=== PATIENT | male | born 1995 ===

== ENCOUNTER 2018-06-30 09:06 | Emergency (ER) | payer SELFPAY ==
[2018-06-30 09:17] VITALS: BP 124/83; PULSE 82; RESP 16; TEMP 97.3; O2SAT 98
--- NOTE | 2018-06-30 09:57 | C.PDOC ---
History Of Present Illness 23 y/o male presents to the ED complaining of an itchy rash to the bilateral wrists and forearms onset 2 weeks ago. Patient notes the rash is now spreading to his face, forehead, and neck. 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 Otherwise patient denies any fever, lip/tongue swelling, sensation of throat closing, or SOB. He does report having a mild productive cough with clear sputum. Patient has been applying calamine lotion and topical hydrocortisone since Saturday with mild improvement. Time Seen by Provider: 06/30/18 09:15 Chief Complaint (Nursing): Abnormal Skin Integrity History Per: Patient History/Exam Limitations: no limitations Onset/Duration Of Symptoms: Days Current Symptoms Are (Timing): Still Present Location Of Injury: Right: Wrist, Left: Wrist Quality Of Symptoms: Itching Past Medical History Reviewed: Historical Data, Nursing Documentation, Vital Signs Vital Signs: Last Vital Signs Temp 97.3 F L 06/30/18 09:14 Pulse 82 06/30/18 09:14 Resp 16 06/30/18 09:14 BP 124/83 06/30/18 09:14 Pulse Ox 98 06/30/18 09:14 - Medical History PMH: No Chronic Diseases Family History: States: No Known Family Hx - Social History Hx Tobacco Use: No Hx Alcohol Use: No Hx Substance Use: No - Immunization History Hx Tetanus Toxoid Vaccination: No Hx Influenza Vaccination: No Hx Pneumococcal Vaccination: No Review Of Systems Constitutional: Negative for: Fever ENT: Negative for: Mouth Swelling, Throat Swelling Respiratory: Negative for: Shortness of Breath, Wheezing Skin: Positive for: Rash Physical Exam - Physical Exam Appears: Well, Non-toxic, No Acute Distress Skin: Warm, Rash (Bilateral anterior wrists with several small fluid-filled vesicles in linear arrangement, (+) maculopapular dry rash to wrists and left distal upper leg; (+) Scattered maculopapular rash to neck and forehead) Head: Normacephalic Eye(s): bilateral: Normal Inspection Oral Mucosa: Moist Tongue: Normal Appearing, No Swelling Lips: Normal Appearing, No Swelling Throat: Normal (airway is patent), No Erythema, No Drooling Neck: Supple Chest: Symmetrical Cardiovascular: Rhythm Regular, No Murmur Respiratory: Normal Breath Sounds, No Accessory Muscle Use, No Wheezing Neurological/Psych: Oriented x3, Normal Speech ED Course And Treatment O2 Sat by Pulse Oximetry: 98 (RA) Pulse Ox Interpretation: Normal Progress Note: Administered 40mg PO prednisone. Advised that patient continue applying the topical creams he has at home. Plan is to discharge patient home with course of PO steroids, return precautions discussed. Disposition Counseled Patient/Family Regarding: Diagnosis, Need For Followup, Rx Given - Disposition Referrals: [facility] [Outside] Disposition: HOME/ ROUTINE Disposition Time: 09:55 Condition: STABLE Additional Instructions: FOLLOW UP WITH YOUR DOCTOR/CLINIC IN 1-2 DAYS USE MEDICATION DIRECTED CONTINUE USING YOUR TROPICAL MEDICATIONS RETURN TO ER IF SYMPTOMS WORSEN Prescriptions: predniSONE [predniSONE Tab] 40 mg PO DAILY #8 tab Instructions: Poison Megan, Poison [place], Poison [place] (DC) Forms: [facility] ([place]), Work Excuse Print Language: KENYAN - POA Present On Arrival: None - Clinical Impression Clinical Impression: Poison megan dermatitis - Scribe Statement The provider has reviewed the documentation as recorded by the Maynor Pearl Provider Attestation: All medical record entries made by the Maynor were at my direction and personally dictated by me. I have reviewed the chart and agree that the record accurately reflects my personal performance of the history, physical exam, medical decision making, and the department course for this patient. I have also personally directed, reviewed, and agree with the discharge instructions and disposition.
== END 2018-06-30 10:06 | disposition home or self-care (01) ==
LOC: C.ER 09:06
DX: L23.7 Allergic contact dermatitis due to plants, except food (principal)